=== PATIENT | female | born 1965 | race Caucasian/White ===

== ENCOUNTER 2016-11-17 20:46 | Inpatient (IN) | payer OTHER ==
--- NOTE | ~2016-11-17 | PA ---
Unit #: [id number] #: [id number] Patient: RHONDA VALDERRAMA [id number] [facility] [address] [place] [address] [id number] Lior MR#: [id number] NAME: RHONDA VALDERRAMA ROOM: P106 Age: 51 Sex: F Admission Date: 11/17/2016 : 1965 Date of Assessment: Attending Physician: Michelle Muñoz M.D. Admitting Physician: Michelle Muñoz M.D. Primary Care Physician: Primary Care Physician No PSYCHIATRIC ASSESSMENT DATE OF SERVICE 11/18/2016. IDENTIFYING DATA Ms. Lr is a 51-year-old white female who is a resident of [place], [place] and was transferred to us from [facility] in [place], [place]. CHIEF COMPLAINT "I overdosed on cocaine and benzodiazepines." HISTORY OF PRESENT ILLNESS Ms. Lr is a 51-year-old white female who was taken to the [facility] in [place], [place] after she overdosed, and was admitted and hospitalized on the intensive care unit after intentional overdose of benzodiazepine and cocaine, and stated that she was on the phone with her son who is in college when he got mad at her and hung up on her, and the patient stated that she thought "what good am I doing, so I thought I would just try to end it. I have lupus and mental issues and I live with my mom, I live with my boyfriend, but my mom annette me because she manages my finances. My sister get free passes, but I don't." The patient reports that her son overdosed on heroin back in February 2006 and the patient stated that she gave her son Narcan and he has been angry at his mom since that time. The patient stated that she has tried to help, but has not been able to do so. The patient reports that she is in disability and ended up overdosing on cocaine and benzodiazepine and was hospitalized in the intensive care unit and once stabilized, she was still seen to be exhibiting some significant depression, anxiety, and reporting suicidal ideations "yesterday, I took an entire bottle of Topamax, but Augusto, my boyfriend got home and found me before I was completely gone." She however on presentation here, during the assessment, the patient was seen to have been hiding multiple pills of Xanax in her bra and they were confessed again, and appears to be 12 mg of Xanax and she was angry and was wanting it back and was told that she will not be able to allow that and she got verbally abusive towards staff. It was also noted that she had those on her throughout her stay in the intensive care unit at [facility] and has been showing very poor insight into her situation, despite overdosing, she still has been smoking those into the hospital. SUBSTANCE ABUSE HISTORY The patient reports history of cocaine and benzodiazepine abuse and dependence. Unit #: [id number] #: [id number] Patient: RHONDA VALDERRAMA PAST PSYCHIATRIC HISTORY The patient has had history of inpatient and outpatient psychiatric treatment at [facility] and has been diagnosed and treated for bipolar disorder. Review of the medical records indicate that she is supposed to be on Effexor, and clonidine, and Topamax, though it is not clear if she has been compliant with the medications on regular basis. PAST MEDICAL HISTORY Hypothyroidism. ALLERGIES Benadryl, morphine, Keppra, and Zofran. PERSONAL AND SOCIAL HISTORY A 51-year-old white female who reports that she is and single and lives in an [facility] and has poor social support system. MENTAL STATUS EXAMINATION Middle-aged white female, who was casually dressed with fair personal hygiene, appears to be in no acute distress or discomfort. She was awake and alert on interaction with intact orientation to time, place, and person. Her mood was anxious and depressed with a congruent affect. Her speech was slow and restricted in content. Her thought processes were disorganized with some looseness of associations and flight of ideas. Her insight and judgment remain significantly impaired. DIAGNOSTIC IMPRESSION Psychiatric: Bipolar disorder, most recent episode depressed, recurrent, moderate, without psychotic features; benzodiazepine dependence, moderate; cocaine dependence, moderate. Medical: Hypothyroidism. Stressors: Moderate psychosocial stressors. TREATMENT PLAN 1. The patient has presented with history of substance abuse and mood disorder, and has been decompensating and will need inpatient hospitalization for safety and stabilization. We will start her back on her home medications and we will also initiate the detox protocol. 2. Supportive therapy was provided to the patient. 3. Safe, structured, and nourishing environment will be provided. ESTIMATED LENGTH OF STAY 5 to 7 days. ABILITY TO HELP SELF Limited. WILLINGNESS TO HELP SELF The patient appears to be willing to help self. STRENGTHS 1. Communicative. 2. Cooperative. PROBLEMS 1. Chronic dysphoric symptoms. 2. Chronic chemical dependency. 3. Poor social support system. Unit #: [id number] #: [id number] Patient: RHONDA VALDERRAMA DISCHARGE CRITERIA This will be contingent upon the patient's ability to go through detox without having any significant withdrawal symptoms as well as her ability to stay safe to herself, particularly after discharge from the hospital. Dictated by... Michelle Muñoz M.D. GEORGES/andry TD: 11/18/2016 13:54 JOB #: [id number] PSYCHIATRIC ASSESSMENT X Michelle Muñoz MD X PSYCHIATRIC ASSESSMENT
--- NOTE | ~2016-11-17 | PN ---
Unit #: [id number] #: [id number] Patient: RHONDA VALDERRAMA [id number] [facility] [address] [place] [address] [id number] I MR#: [id number] NAME: RHONDA VALDERRAMA ROOM: [facility] Age: 51 Sex: F Admission Date: 11/17/2016 : 1965 Attending Physician: Michelle Muñoz M.D. Admitting Physician: Michelle Muñoz M.D. Primary Care Physician: Primary Care Physician Vandana GUTIÉRREZ NOTES DATE November 19, 2016 DISCUSSION Ms. Valderrama is a 51-year-old white female, who was seen today and chart was reviewed and the case was discussed with the staff. The patient has been anxious and has been seclusive to herself and reports, the patient was lying in the bed and was seen to have minimal interaction, poor contact and thought blocking, and bizarre behavior though she has not shown any agitation or aggression. MENTAL STATUS EXAMINATION Middle-aged white female, who was casually dressed with fair personal hygiene and appears to be in no acute distress or discomfort. The patient was awake and alert with impaired attention and concentration. Her mood was anxious and depressed with a congruent affect. Her speech is slow and restricted in content. The patient denies any suicidal or homicidal ideations. Her insight and judgment remain slightly impaired. TREATMENT PLAN 1. We will continue her on her current medications and treatment protocol, and will monitor her response to the medications, and make further adjustments as needed. 2. We will continue to followup. Dictated by... Enrico Burks/marlee TD: 11/21/2016 12:19 JOB #: [id number] Unit #: [id number] #: [id number] Patient: RHONDA VALDERRAMA NAVEENMARLENI MARLA NOTES X Michelle Muñoz MD PROGRESS NOTE
--- NOTE | ~2016-11-17 | DS ---
Unit #: [id number] #: [id number] Patient: RHONDA VALDERRAMA [id number] [facility] [address] [place] [place] [address] [id number] I MR#: [id number] NAME: RHONDA VALDERRAMA ROOM: P178 Age: 51 Sex: F Admission Date: 11/17/2016 : 1965 Discharge Date: 11/23/2016 Attending Physician: Michelle Muñoz M.D. Primary Care Physician: Primary Care Physician No DISCHARGE SUMMARY IDENTIFYING DATA Ms. Valderrama is a 51-year-old white female, who is a resident of [place], [place] and was transferred to from [facility]. DISCHARGE DIAGNOSES Psychiatric: Bipolar disorder, most recent episode depressed, recurrent, moderate, without psychotic features; benzodiazepine dependence, moderate; cocaine dependence, moderate. Medical: Hypothyroidism. Stressors: Moderate psychosocial stressors. HISTORY OF PRESENT ILLNESS Please see initial psychiatric evaluation for details. PAST PSYCHIATRIC HISTORY Please see initial psychiatric evaluation for details. PAST MEDICAL HISTORY Please see initial psychiatric evaluation for details. HOSPITAL COURSE The patient [facility] and was oriented to the hospital environment. Routine p.r.n. medications were initiated, and she was started back on her home medications and medications were adjusted as the patient was seen to be extremely depressed and anxious upon presentation; however, she did not show any agitation or aggression and was really calm and cooperative with treatment recommendation and was taking medications regularly and was tolerating them fairly well and was able to show a slow, but therapeutic response to the medication and was willing to continue treatment on an outpatient basis and as such, it was decided that she will be discharged home and will continue treatment on an outpatient basis. DISCHARGE MEDICATIONS Effexor XR 150 mg a day for depression, Seroquel 100 mg at bedtime for depression, Topamax 150 mg b.i.d. for mood disorder, and Synthroid 0.075 mg a day for hypothyroidism. DISCHARGE CONDITION Stable. PROGNOSIS Fair. Unit #: [id number] #: [id number] Patient: RHONDA VALDERRAMA Dictated by... Enrico Bukrs/andry TD: 11/23/2016 06:56 JOB #: [id number] DISCHARGE SUMMARY X Michelle Muñoz MD DISCHARGE SUMMARY
--- NOTE | ~2016-11-17 | PN ---
Unit #: [id number] #: [id number] Patient: RHONDA VALDERRAMA [id number] [facility] [address] [place] [address] [id number] I MR#: [id number] NAME: RHONDA VALDERRAMA ROOM: [facility] Age: 51 Sex: F Admission Date: 11/17/2016 : 1965 Attending Physician: Michelle Muñoz M.D. Admitting Physician: Michelle Muñoz M.D. Primary Care Physician: Primary Care Physician Vandana GUTIÉRREZ NOTES DATE 11/20/2016 DISCUSSION Ms. Valderrama is a 51-year-old white female who was seen today and chart was reviewed and case was discussed with the staff. She has been anxious, withdrawn, depressed and rather seclusive to herself and has been laying in her bed and was slow to respond (1) persistent depression, anxiety, feelings of hopelessness and some auditory hallucinations as she stated that they are constantly voices in her head and she cannot sleep because of those at night. MENTAL STATUS EXAMINATION Middle-aged white female who was casually dressed with fair personal hygiene, appears to be in no acute distress or discomfort. She was awake and alert on interaction with intact orientation. Her mood was anxious with congruent affect. She denies any suicidal or homicidal ideations. Her insight and judgement remains slightly impaired. TREATMENT PLAN 1. We will continue her on her current medications and we will adjust her medications and increase her Effexor and add Seroquel at bedtime. 2. We will continue to follow up. Dictated by... Enrico Burks/kike TD: 11/22/2016 02:59 JOB #: [id number] Unit #: [id number] #: [id number] Patient: RHONDA VALDERRAMA PROGRESS NOTES X Michelle Muñoz MD PROGRESS NOTE
--- NOTE | ~2016-11-17 | PN ---
Unit #: [id number] #: [id number] Patient: RHONDA VALDERRAMA [id number] [facility] [address] [place] [address] [id number] I MR#: [id number] NAME: RHONDA VALDERRAMA ROOM: [facility] Age: 51 Sex: F Admission Date: 11/17/2016 : 1965 Attending Physician: Michelle Muñoz M.D. Admitting Physician: Michelle Muñoz M.D. Primary Care Physician: Primary Care Physician Vandana GUTIÉRREZ NOTES DATE OF SERVICE: 11/21/2016 SUBJECTIVE Ms. Lr is a 51-year-old white female who was seen today and chart was reviewed, and case was discussed with the staff. She has been anxious, withdrawn, and rather seclusive to herself. Meanwhile, she has been cooperative with treatment recommendations and has been taking medications and tolerating them fairly well with no reported side effects. MENTAL STATUS EXAMINATION Middle-aged white female who was casually dressed with fair personal hygiene, appears to be in no acute distress or discomfort. She was awake and alert on interaction with intact orientation. Her mood was anxious and depressed with a congruent affect. Her speech was slow and goal directed. She denies any suicidal or homicidal ideations, and also denies any auditory or visual hallucinations. Her insight and judgment remain slightly impaired. TREATMENT PLAN 1. We will continue on her current medications and treatment protocol. We will monitor her response to medications and make further adjustments as needed. 2. We will continue to follow up. Dictated by... Enrico Burks/andry TD: 11/22/2016 00:50 JOB #: [id number] GUSTABO GUTIÉRREZ NOTES X Michelle Muñoz MD PROGRESS NOTE
--- NOTE | ~2016-11-17 | HP ---
Unit #: [id number] #: [id number] Patient: CIARA VALDERRAMA [id number] [place] [address] [id number] I MR#: [id number] NAME: CIARA VALDERRAMA ROOM: [facility] Age: 51 Sex: F Admission Date: 11/17/2016 : 1965 Attending Physician: Michelle Muñoz M.D. Admitting Physician: Michelle Muñoz M.D. Primary Care Physician: Primary Care Physician No HISTORY AND PHYSICAL HISTORY OF PRESENT ILLNESS Ciara is a 51-year-old female admitted to [address] [place] [address] after an alleged suicide attempt with an overdose of benzodiazepines and cocaine. PAST MEDICAL HISTORY 1. Lupus. 2. Seizure disorder. 3. Hypothyroidism. PAST SURGICAL HISTORY Hysterectomy. ALLERGIES Benadryl, Keppra, morphine, Zofran. SOCIAL HISTORY She denies cigarettes, is a binge drinker and has a history of illicit drug use to include abusing benzodiazepines and cocaine. FAMILY HISTORY Medically noncontributory. REVIEW OF SYSTEMS CONSTITUTIONAL: No fever or chills. HEENT: Denies any sore throat, ear pain or runny nose. CARDIOVASCULAR: Denies chest pain, irregular heart rhythm or palpitations. CHEST: Denies shortness of breath or cough. No hemoptysis. GASTROINTESTINAL: Denies nausea, vomiting, diarrhea or chronic constipation. ENDOCRINE: Denies history of increased thirst or urination. No recent significant weight loss or gain. GENITOURINARY: Denies dysuria, frequency, or hematuria. SKIN: Denies any rashes. HEMATOLOGIC: Denies history of increased bleeding or bruising. MUSCULOSKELETAL: Denies any hot, swollen joints. No generalized muscle pain. NEUROLOGIC: Denies problems with vision or speech. No frequent, severe headaches. No numbness, tingling or weakness in any extremities. Denies loss of bladder or bowel control. CURRENT MEDICATIONS 1. Levothroid 0.075 mg daily. 2. Topamax 150 mg b.i.d. Unit #: [id number] #: [id number] Patient: CIARA VALDERRAMA 3. Effexor 75 mg daily. 4. Milk of Magnesia p.r.n. 5. Maalox p.r.n. 6. Tylenol p.r.n. PHYSICAL EXAMINATION GENERAL: Alert, well-nourished, in no apparent distress. VITAL SIGNS: Blood pressure 126/84, heart rate 84, respirations 16, temperature 98.6. WEIGHT: 118. HEIGHT: 5 feet 3 inches. SKIN: Warm and dry without rash or lesion. HEENT: Normocephalic. TMs not viewed. Oral and nasal passages clear. Conjunctivae clear. PERRLA. EOMs intact. NECK: Supple without lymphadenopathy or thyromegaly. HEART: Regular rate and rhythm without murmur. LUNGS: Clear. ABDOMEN: Soft, nontender. : Not done. EXTREMITIES: No evidence of cyanosis, clubbing or edema. Moves all without focal deficit. NEUROLOGICAL: Grossly within normal limits. Cranial Nerves: II: Visual newman are intact. III, IV AND : Extraocular movements are intact. Pupils are equal, round and reactive to light. V: Facial sensation is grossly normal. VII: Facial movements and expression are normal. VIII: Auditory acuity grossly intact. IX, X: Uvula is midline. Phonation is normal. XI: Patient shrugs shoulders and turns head normally. XII: Tongue protrudes in the midline. Sensory and Motor Function: Sensory and motor sensation is grossly normal. Motor: moves all extremities well. Coordination: Gait is normal. Deep Tendon Reflexes: Intact. IMPRESSION Psychiatric admission. RECOMMENDATIONS PSYCHIATRIC: Per psychiatrist. MEDICAL: See no contraindications to participate in facility's activities. MEDICAL PROGNOSIS Good. MEDICAL CONDITION Stable. Dictated by... Tricia Marquez P.A.-C. for Enrico Pruitt/estuardo TD: 11/18/2016 19:49 JOB #: [id number] Unit #: [id number] #: [id number] Patient: CIARA VALDERRAMA HISTORY AND PHYSICAL X Tricia Marquez HISTORY AND PHYSICAL
--- NOTE | ~2016-11-17 | PN ---
Unit #: [id number] #: [id number] Patient: RHONDA VALDERRAMA [id number] [facility] [address] [place] [address] [id number] I MR#: [id number] NAME: RHONDA VALDERRAMA ROOM: [facility] Age: 51 Sex: F Admission Date: 11/17/2016 : 1965 Attending Physician: Michelle Muñoz M.D. Admitting Physician: Michelle Muñoz M.D. Primary Care Physician: Primary Care Physician Vandana GUTIÉRREZ NOTES DATE OF SERVICE 11/22/2016 DISCUSSION Ms. Valderrama is a 51-year-old white female who was seen today. Chart was reviewed and case was discussed with the staff. She has been anxious, withdrawn, and rather seclusive to herself. Meanwhile, she has been cooperative with treatment recommendations and has been taking the medications and tolerating them fairly well with no reported side effects. MENTAL STATUS EXAMINATION Middle-aged white female who is casually dressed with fair personal hygiene, appears to be in no acute distress or discomfort. She was awake and alert on interaction with intact orientation. Her mood is anxious with congruent affect. She denies any suicidal or homicidal ideations. Her insight and judgment remain slightly impaired. TREATMENT PLAN We will continue her on her current medications and treatment protocol. We will monitor her response and make further adjustments as needed. Dictated by... Enrico Burks/normag TD: 11/23/2016 11:23 JOB #: [id number] GUSTABO PROGRESS NOTES X Michelle Muñoz MD PROGRESS NOTE
[2016-11-18 10:05] LABS: BASOPHIL% 0.9 % (0-2.5); EOSINOPHIL% 1.9 % (0.0-7.0); HEMOGLOBIN 12.2 gm/dL (12.0-16.0); LYMPHOCYTE# 1.1 X10e3 (1.0-3.5); MEAN CELL VOLUME 97.9 FL (83-96); MEAN CORPUSCULAR HEMOGLOBIN 33.1 PG (28-34); MEAN CORPUSCULAR HGB CONC 33.8 g/dL (30-36); MEAN PLATELET VOLUME 9.6 FL (6.5-11.5); MONOCYTE# 0.1 X10e3 (0-1.0); MONOCYTE% 5.7 % (3.0-12.0); NEUTROPHIL# 1.1 X10e3 (1.5-7.1); NEUTROPHIL% 45.5 % (40-75); RED BLOOD COUNT 3.68 X10e (3.90-5.30); RED CELL DISTRIBUTION WIDTH 12.7 % (11.0-15.5); WHITE BLOOD COUNT 2.4 X10e3 (4.0-10.5)
[2016-11-18 10:18] LABS: THYROID STIMULATING HORMONE 3.86 uIU/ml (0.34-5.60)
[2016-11-18 10:25] LABS: FREE THYROXIN (T4) 0.56 ng/dL (0.58-1.64)
[2016-11-18 10:30] LABS: ALBUMIN SERUM 3.6 g/dL (3.5-5.0); ALKALINE PHOSPHATASE 50 U/L (32-92); ALT (SGPT) 25 U/L (10-40); AST (SGOT) 30 U/L (10-42); BILIRUBIN,TOTAL 0.5 mg/dL (0.2-2.0); BLOOD UREA NITROGEN 7 mg/dL (9-23); CARBON DIOXIDE 18 mmol/L (22-31); CHLORIDE 118 mmol/L (100-111); CREATININE SERUM 0.7 mg/dL (0.6-1.4); GLOM FILT RATE Estimated ABOVE60 mL/min (>60); GLUCOSE FASTING 77 mg/dL (70-110); POTASSIUM 3.6 mmol/L (3.5-5.1); PROTEIN TOTAL SERUM 5.8 g/dL (6.0-8.3); SODIUM 143 mmol/L (135-145)
[2016-11-18 10:42] LABS: DIFF IND YES; PLATELET COUNT 85 X10e3 (140-420)
[2016-11-18 10:50] LABS: PLATELET ESTIMATE DECREASED (NORMAL); RBC NORMAL YES
== END 2016-11-23 09:33 | DRG 885 ==
LOC: P2L 20:46 → P1S 22:35 → P1E 11-22 19:08
PROVIDERS: Psychiatry & Neurology Psychiatry
PROC: HZ2ZZZZ Detoxification Services for Substance Abuse Treatment (ICD-10-PCS; principal; 2016-11-17)
DX: F31.32 Bipolar disorder, current episode depressed, moderate (principal); M32.9 Systemic lupus erythematosus, unspecified; F14.20 Cocaine dependence, uncomplicated; F13.20 Sedative, hypnotic or anxiolytic dependence, uncomplicated; R45.851 Suicidal ideations; G40.909 Epilepsy, unspecified, not intractable, without status epilepticus; E03.9 Hypothyroidism, unspecified; T42.4X2D Poisoning by benzodiazepines, intentional self-harm, subsequent encounter; T40.5X2 Poisoning by cocaine, intentional self-harm; F41.9 Anxiety disorder, unspecified; Z88.8 Allergy status to other drugs, medicaments and biological substances; Z88.5 Allergy status to narcotic agent; Z90.710 Acquired absence of both cervix and uterus
CPT/HCPCS: 80053; 84439; 84443; 85025